=== PATIENT | female | born 1960 | race Caucasian/White ===

== ENCOUNTER 2016-06-28 17:57 | Inpatient (IN) | payer OTHER ==
--- NOTE | ~2016-06-28 | DS ---
Discharge Summary [facility] [address] [place]. [address] NAME: VENU ESTRELLA : 60 STATUS : DIS IN PAT#: [id number] AGE: 56 ADM/REG DATE : 06/28/16 MR#: [id number] REPORT SERV DATE: 07/02/16 DICTATED BY: LEIDY FERNÁNDEZ DATE: 07/01/16 REPORT STATUS : Draft TRANSCRIBED BY: MODL DATE: 07/01/16 ADMISSION DATE: 06/28/2016 DISCHARGE DATE: 07/01/2016 HISTORY OF PRESENT ILLNESS: The patient is a 56-year-old female with a history of seizure disorder, CVA, hypothyroidism, and morbid obesity, who presented to the emergency room with a complaint of bright red blood per rectum. For further details, please refer to H and P dictated by Dr. Mckeon on 06/28/2016. HOSPITAL COURSE: Upon admission to the hospital, the patient was admitted on the Hospitalist Service for further management. GI was subsequently consulted to assist in management. The patient underwent a colonoscopy by GI, which noted evidence of inflammation; however, studies were overall normal. Biopsies were taken. The patient was subsequently started on p.o. liquid diet and transitioned to regular diet, which she has tolerated. She remains hemodynamically stable with no evidence of further GI bleed. Also, given her presenting symptoms, workup included a stool study. Stool study was obtained, which came back negative. Given resolution of her presenting complaints, given her hemodynamic stability, and given completion of workup, the patient will be discharged to follow up with her primary care physician and GI as outpatient for biopsy results. Plan has been discussed with the patient, who voices understanding and is agreeable with this plan. DISCHARGE DIAGNOSES: 1. Colitis. 2. Lower gastrointestinal bleed. 3. History of cerebrovascular accident. 4. History of seizure disorder. 5. Hypothyroidism. 6. Morbid obesity. DISCHARGE EXAM: VITAL SIGNS: Blood pressure 130/62 with a pulse of 66, respirations 14, saturating 96% on room air, the patient is currently afebrile. GENERAL: The patient is lying in bed, in no acute distress. Speaking in full sentences. Appears stated age. Appears morbidly obese. HEENT: Normocephalic, atraumatic. Extraocular motors intact. Moist oral mucosa. Pupils round and reactive to light and accommodation. Extraocular motors intact. NECK: Full and symmetric. Trachea midline and symmetric. No thyromegaly noted. No masses palpated. CHEST: Clear. Nontender to palpation. No scars noted. CARDIOVASCULAR: Regular rate and rhythm. S1, S2. No murmurs, rubs, or gallops. LUNGS: Clear to auscultation bilaterally. ABDOMEN: Morbidly obese. Positive bowel sounds. Mild tenderness noted. EXTREMITIES: No cyanosis, clubbing, or edema. NEUROLOGIC: Alert and oriented x3. No focal deficits appreciated. DISCHARGE MEDICATIONS: Valium 10 mg p.o. q.6 hours, ranitidine 150 mg p.o. twice a day, [place] 10/25 mg one tab p.o. four times a day, Keppra 1500 mg p.o. twice a day, levothyroxine Discharge Summary [address] [address] NAME: VENU ESTRELLA : 60 STATUS : DIS IN PAT#: [id number] AGE: 56 ADM/REG DATE : 06/28/16 MR#: [id number] REPORT SERV DATE: 07/02/16 DICTATED BY: LEIDY FERNÁNDEZ DATE: 07/01/16 REPORT STATUS : Draft TRANSCRIBED BY: MAGGIE DATE: 07/01/16 25 mcg p.o. daily, Atarax 25 mg p.o. at bedtime, lisinopril 10 mg p.o. daily, hydrochlorothiazide 25 mg p.o. daily, albuterol two puff inhalations q.4 hours p.r.n., Zyrtec 10 mg p.o. daily p.r.n., and Stanback powder. IMAGIN. Brain CT without contrast, impression:. a. No acute CVA or other acute intracranial pathology. b. Small, well-defined 2-cm water-attenuation hypodensity at the inferior temporal lobe suggesting focal encephalomalacia from an old CVA, less likely peripheral arachnoid cyst. 2. CT abdomen and pelvis without contrast, impression:. a. Long segment colitis pattern involving descending colon to the level of the junction with the proximal sigmoid colon. No pericolonic abscess, most likely infectious or inflammatory colitis. b. Stable changes of cholecystectomy and hysterectomy. c. Nonspecific, stable, mild hepatomegaly. GI was consulted during this admission. PROCEDURES: Colonoscopy was performed, impression, non thrombosed external hemorrhoids found on perianal exam, patchy moderate inflammation was found from 40 to 60 cm proximal to the anus secondary to left-sided colitis, biopsied. Exam was otherwise normal on direct and retroflexion views. DISPOSITION: The patient will be discharged home to follow up with primary care physician at for biopsy results. ACTIVITY: As tolerated. DIET: Regular. Greater than 30 minutes was spent on medication reconciliation, discharging, dictating note, coordination of care, and chart review. MAY/MAGGIE Leidy Fernández MD / [id number] CC: Leidy Fernández MD
--- NOTE | ~2016-06-28 | EGD ---
EGD REPORT [facility] [address] [place] [address] NAME: VENU MENDIETA : 60 STATUS : ADM IN PAT#: [id number] AGE: 56 ADM/REG DATE : 06/28/16 MR#: [id number] REPORT SERV DATE: 06/30/16 DICTATED BY: JARVIS DE LA FUENTE DATE: 06/30/16 REPORT STATUS : Draft [facility]ANS[facility]IBED [facility]: [facility] DATE: 06/30/16 Endoscopy Center Patient Name: Venu Mendieta Date of : 1960 Attending MD: JARVIS DE LA FUENTE MD Procedure Date No Time: 06/30/2016 Procedure: Colonoscopy Indications: Abdominal pain in the left lower quadrant, Hematochezia, Abnormal CT of the GI tract Referring MD: NYA POPE Medicines: Monitored Anesthesia Care Complications: No immediate complications. Estimated blood loss: Minimal. Procedure: Pre-Anesthesia Assessment: - ASA Grade Assessment: III - A patient with severe systemic disease. After I obtained informed consent, the scope was passed under direct vision. Throughout the procedure, the patient's blood pressure, pulse, and oxygen saturations were monitored continuously. The [id number] was introduced through the anus and advanced to the cecum, identified by appendiceal orifice and ileocecal valve. The colonoscopy was performed without difficulty. The patient tolerated the procedure well. The quality of the bowel preparation was good. Findings: The perianal exam was abnormal. Findings include non-thrombosed external hemorrhoids. Patchy moderate inflammation characterized by congestion (edema), erythema and shallow ulcerations was found from 40 to 60 cm proximal to the anus. Biopsies were taken with a cold forceps for histology. Estimated blood loss was minimal. The exam was otherwise without abnormality on direct and retroflexion views. Impression: - Non-thrombosed external hemorrhoids found on perianal exam. - Patchy moderate inflammation was found from 40 to 60 cm proximal to the anus secondary to left-sided colitis. Biopsied. - The examination was otherwise normal on direct and retroflexion views. Recommendation: - Return patient to hospital [facility] for ongoing care. EGD REPORT [address] [place]. [address] NAME: VENU MENDIETA : 60 STATUS : ADM IN [facility]#: [id number] AGE: 56 ADM/REG DATE : 06/28/16 MR#: [id number] REPORT SERV DATE: 06/30/16 DICTATED BY: JARVIS DE LA FUENTE DATE: 06/30/16 REPORT STATUS : Draft TRANSCRIBED BY: [facility] [facility] DATE: 06/30/16 - Await pathology results. - Obtain basic stool studies (has not yet been performed) - Use broad spectrum antibiotics for 2 weeks. Procedure Code(s): --- Professional --- 11922, Colonoscopy, flexible, proximal to splenic flexure; with biopsy, single or multiple Diagnosis Code(s): --- Professional --- K64.4, Residual hemorrhoidal skin tags K51.50, Left sided colitis without complications R10.32, Left lower quadrant pain K92.1, Melena R93.3, Abnormal findings on diagnostic imaging of other parts of digestive tract CPT copyright 2013 [employer]. All rights reserved. The codes documented in this report are preliminary and upon certified medical records coder review may be revised to meet current compliance requirements. Jarvis De La Fuente MD JARVIS DE LA FUENTE MD 06/30/2016 9:06 AM This report has been signed electronically. Number of Addenda: 0 Note Initiated On: 06/30/2016 8:31 AM Scope Withdrawal Time 0 hours 9 minutes 9 seconds [id number] [id number]
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
--- NOTE | ~2016-06-28 | CN ---
Consultation Report [place] [id number] [facility] [place]. [address] NAME: VENU ESTRELLA : 60 STATUS : ADM IN PAT#: [id number] AGE: 56 ADM/REG DATE : 06/28/16 MR#: [id number] REPORT SERV DATE: 06/29/16 DICTATED BY: HARRY PAIZ DATE: 06/29/16 REPORT STATUS : Draft TRANSCRIBED BY: MODL DATE: 06/29/16 GI CONSULTATION DATE OF CONSULTATION: 06/29/2016 HISTORY OF PRESENT ILLNESS: The patient is a 56-year-old, white female, whom we are consulted for hematochezia. The patient gives a two-month history of bright red blood per rectum, which worsened along with left lower quadrant pain, which worsened over the last couple of days. In the emergency room, she was found to have a hemoglobin of 16.0, hematocrit 47.[address] scan showing thickening of the left side of her colon consistent with colitis. The patient had a colonoscopy back in [address] Chao, at which time, polyps were removed. She says she was bleeding at that time. PAST MEDICAL HISTORY: 1. Hypertension. 2. Hypothyroidism. 3. Gastroesophageal reflux disease. 4. Seizure disorder. 5. Status post hysterectomy, bladder tack, and cholecystectomy. MEDICATIONS: Reviewed. Of note, she does take chronic hydrocodone for chronic pain, as well as ranitidine for her reflux. ALLERGIES: NONE. SOCIAL HISTORY: The patient has history of tobacco use in the past. PHYSICAL EXAMINATION: GENERAL: The patient is an obese, white female, in no acute distress. LUNGS: Clear. CARDIOVASCULAR: Regular rate and rhythm. ABDOMINAL: Soft. There is ximm-ha-[id number] tenderness in the left lower quadrant. No peritoneal signs are appreciated. LABORATORY: Noted. ASSESSMENT: 1. Although the patient gives a history of two months of rectal bleeding, her change most recently seems to be due to most likely ischemic colitis. Other times, colitis will need to be considered, but seems less likely. With her chronic bleeding, anal canal disease is likely for this chronic issue. 2. History of colon polyps removed in 2014. Consultation Report [place] [id number] [facility] [place]. [address] NAME: VENU ESTRELLA : 60 STATUS : ADM IN PAT#: [id number] AGE: 56 ADM/REG DATE : 06/28/16 MR#: [id number] REPORT SERV DATE: 06/29/16 DICTATED BY: HARRY PAIZ DATE: 06/29/16 REPORT STATUS : Draft TRANSCRIBED BY: MAGGIE DATE: 06/29/16 3. Gastroesophageal reflux disease. 4. Other medical problems as above. RECOMMENDATIONS: 1. Continue to monitor the patient. 2. We will schedule the patient for colonoscopy in the morning. 3. Continue antibiotics in the interim. LS/MAGGIE Harry Paiz M.D. / [id number] CC: Saige Benedict MD
[2016-06-28 14:44] LABS: BASOPHILS 0.2 %; BASOPHILS ABSOLUTE 0.05 10/3/uL (0.0-0.16); EOSINOPHILS 0.2 %; EOSINOPHILS ABSOLUTE 0.05 10/3/uL (0.0-0.53); HEMATOCRIT 47.3 % (36.0-48.0); IMMATURE GRANULOCYTES 0.8 %; IMMATURE GRANULOCYTES ABSOLUTE 0.16 10/3/uL (0.0-0.11); LYMPHOCYTES 20.1 %; LYMPHOCYTES ABSOLUTE 4.08 10/3/uL (0.67-4.30); MEAN CORPUS HGB CONC 33.8 g/dL (32.0-36.0); MEAN CORPUSCULAR HEMOGLOB 29.5 pg (26.0-34.0); MEAN CORPUSCULAR VOLUME 87.3 fL (80-100); MONOCYTES 5.7 %; MONOCYTES ABSOLUTE 1.15 10/3/uL (0.21-1.20); NEUTROPHILS ABSOLUTE 14.84 10/3/uL (2.02-8.40); PLATELET COUNT 328 10/3/uL (150-400); RBC DISTRIBUTION WIDTH 12.9 % (12.0-16.0); RED CELL COUNT 5.42 10/6/uL (4.0-5.6)
[2016-06-28 14:45] LABS: ER CBC TAT 0 Hrs 08 Mins; MANUAL DIFF NO %; WHITE BLOOD CELLS 20.3 10/3/uL (4.5-10.5)
[2016-06-28 14:51] LABS: ASCORBIC ACID (UR NOT ORDER) NEG (NEG); BILIRUBIN, URINE NEGATIVE (NEG); ER URINALYSIS TAT 0 Hrs 14 Mins; KETONE, URINE NEGATIVE (NEG); LEUKOCYTE ESTERASE(NOT OR NEG (NEG); NITRITE (URINE) NEG (NEG); WBC (NOT ORDERED) (RFLEX) 3 (0-5)
[2016-06-28 15:03] LABS: A/G RATIO 0.8 (0.7-1.9); ALBUMIN 3.6 G/DL (3.5-5.0); ALKALINE PHOSPHATASE 99 U/L (45-117); BUN (BLOOD UREA NITROGEN) 23 MG/DL (6-23); CALCIUM, SERUM 9.1 MG/DL (8.5-10.4); CHLORIDE, SERUM 99 MMOL/L (96-112); CO2 (CARBON DIOXIDE) 28 MMOL/L (24-34); CREATININE 0.84 MG/DL (0.55-1.02); GFR AFRICAN AMERICAN 90 ML/MIN (>=60); GFR NON AFRICAN AMERICAN 78 ML/MIN (>=60); GLOBULIN 4.5 G/DL (2.5-4.1); GLUCOSE, SERUM 95 MG/DL (60-99); POTASSIUM, SERUM 4.1 MMOL/L (3.5-5.3); SGOT(AST) 32 U/L (5-40); SGPT(ALT) 31 U/L (5-65); SODIUM, SERUM 139 MMOL/L (135-148); TOTAL BILIRUBIN 0.9 MG/DL (0-1.2); TOTAL PROTEIN 8.1 G/DL (6.0-8.5)
[~2016-06-28 17:57] MED LIST: DELESTROGEN40 MG/ML IM; GLUCPH PO; HCTZ25B PO; ICY HOT16 % TOP; KEPPRA1000 MG PO; KEPPRA500 PO; METHOC500B PO; NORCO1 TAB PO; PRIN10 PO; PROVHFA INH; REQUIP5 PO; RISP0.5 PO; SYN.025B PO; XANAX1 MG PO; ZANTAC 150 PO; ZOCOR20 PO; ZOL100 PO
[2016-06-28] MEDS ORDERED: LEVOTHYROXIN25 MCG PO (18:34)
[2016-06-28] MEDS ORDERED: KEPPRA500 PO (18:34)
[2016-06-28] MEDS ORDERED: ZANTAC150 MG PO (18:34)
[2016-06-28] MEDS ORDERED: PRIN10 PO (18:34)
[2016-06-28] MEDS ORDERED: HYDROCHLOROT25 MG PO (18:35)
[2016-06-28] MEDS ORDERED: NORCO1 TAB PO (18:35)
[2016-06-28] MEDS ORDERED: PROVHFA INH (18:35)
[2016-06-28] MEDS ORDERED: VALIUM10 MG PO (18:36)
[2016-06-28] MEDS ORDERED: AT25 PO (18:36)
[2016-06-28] MEDS ORDERED: ZYRTEC ALLGY10 MG PO (18:36)
[2016-06-28] MEDS ORDERED: ASPIRIN PO (18:37)
[2016-06-28] MEDS ORDERED: CAFFEINE PO (18:37)
[2016-06-28 21:25] LABS: PROCALCITONIN <0.05 ng/mL (<0.5)
[2016-06-28 23:39] LABS: HEMATOCRIT 43.6 % (36.0-48.0); HEMOGLOBIN 14.6 g/dL (12.0-16.0)
[2016-06-29 06:17] LABS: BASOPHILS 0.1 %; BASOPHILS ABSOLUTE 0.02 10/3/uL (0.0-0.16); EOSINOPHILS 2.6 %; EOSINOPHILS ABSOLUTE 0.35 10/3/uL (0.0-0.53); HEMATOCRIT 40.4 % (36.0-48.0); HEMOGLOBIN 13.4 g/dL (12.0-16.0); IMMATURE GRANULOCYTES 0.5 %; IMMATURE GRANULOCYTES ABSOLUTE 0.07 10/3/uL (0.0-0.11); LYMPHOCYTES 32.3 %; LYMPHOCYTES ABSOLUTE 4.42 10/3/uL (0.67-4.30); MEAN CORPUS HGB CONC 33.2 g/dL (32.0-36.0); MEAN CORPUSCULAR HEMOGLOB 29.1 pg (26.0-34.0); MEAN CORPUSCULAR VOLUME 87.8 fL (80-100); MEAN PLATELET VOLUME 9.9 fL (9.2-13.0); MONOCYTES ABSOLUTE 0.82 10/3/uL (0.21-1.20); NEUTROPHILS 58.5 %; NEUTROPHILS ABSOLUTE 8.01 10/3/uL (2.02-8.40); PLATELET COUNT 303 10/3/uL (150-400); RBC DISTRIBUTION WIDTH 13.1 % (12.0-16.0); WHITE BLOOD CELLS 13.7 10/3/uL (4.5-10.5)
[2016-06-29 06:21] LABS: MANUAL DIFF NO %
[2016-06-29 06:28] LABS: CALCIUM, SERUM 9.2 MG/DL (8.5-10.4); CHLORIDE, SERUM 98 MMOL/L (96-112); CO2 (CARBON DIOXIDE) 26 MMOL/L (24-34); CREATININE 1.08 MG/DL (0.55-1.02); GFR AFRICAN AMERICAN 66 ML/MIN (>=60); GFR NON AFRICAN AMERICAN 57 ML/MIN (>=60); GLUCOSE, SERUM 94 MG/DL (60-99); POTASSIUM, SERUM 3.6 MMOL/L (3.5-5.3); SODIUM, SERUM 136 MMOL/L (135-148)
[2016-06-29 06:29] LABS: BUN (BLOOD UREA NITROGEN) 27 MG/DL (6-23)
[2016-06-29 15:19] LABS: HEMATOCRIT 40.4 % (36.0-48.0); HEMOGLOBIN 13.5 g/dL (12.0-16.0)
[2016-06-29 21:59] LABS: HEMATOCRIT 40.7 % (36.0-48.0); HEMOGLOBIN 13.6 g/dL (12.0-16.0)
[2016-06-30 06:18] LABS: BASOPHILS 0.2 %; BASOPHILS ABSOLUTE 0.03 10/3/uL (0.0-0.16); EOSINOPHILS 2.4 %; EOSINOPHILS ABSOLUTE 0.31 10/3/uL (0.0-0.53); HEMATOCRIT 41.6 % (36.0-48.0); HEMOGLOBIN 13.7 g/dL (12.0-16.0); IMMATURE GRANULOCYTES 0.4 %; IMMATURE GRANULOCYTES ABSOLUTE 0.05 10/3/uL (0.0-0.11); LYMPHOCYTES 31.1 %; LYMPHOCYTES ABSOLUTE 4.02 10/3/uL (0.67-4.30); MEAN CORPUS HGB CONC 32.9 g/dL (32.0-36.0); MEAN CORPUSCULAR HEMOGLOB 29.1 pg (26.0-34.0); MEAN CORPUSCULAR VOLUME 88.3 fL (80-100); MEAN PLATELET VOLUME 9.8 fL (9.2-13.0); MONOCYTES 5.2 %; MONOCYTES ABSOLUTE 0.67 10/3/uL (0.21-1.20); NEUTROPHILS 60.7 %; NEUTROPHILS ABSOLUTE 7.86 10/3/uL (2.02-8.40); PLATELET COUNT 279 10/3/uL (150-400); RED CELL COUNT 4.71 10/6/uL (4.0-5.6); WHITE BLOOD CELLS 12.9 10/3/uL (4.5-10.5)
[2016-06-30 06:23] LABS: ALBUMIN 2.9 G/DL (3.5-5.0); CALCIUM, SERUM 8.7 MG/DL (8.5-10.4); CHLORIDE, SERUM 104 MMOL/L (96-112); CO2 (CARBON DIOXIDE) 26 MMOL/L (24-34); CREATININE 0.67 MG/DL (0.55-1.02); GFR AFRICAN AMERICAN 114 ML/MIN (>=60); GFR NON AFRICAN AMERICAN 98 ML/MIN (>=60); GLUCOSE, SERUM 93 MG/DL (60-99); PHOSPHORUS, SERUM 2.6 MG/DL (2.5-4.5); POTASSIUM, SERUM 3.8 MMOL/L (3.5-5.3); SODIUM, SERUM 139 MMOL/L (135-148)
[2016-06-30 06:28] LABS: MANUAL DIFF NO %
[2016-06-30 06:31] LABS: BUN (BLOOD UREA NITROGEN) 11 MG/DL (6-23)
[2016-06-30 15:14] LABS: HEMATOCRIT 37.5 % (36.0-48.0); HEMOGLOBIN 12.2 g/dL (12.0-16.0)
[2016-06-30 22:59] LABS: HEMATOCRIT 37.3 % (36.0-48.0); HEMOGLOBIN 12.3 g/dL (12.0-16.0)
[2016-07-01 06:32] LABS: BASOPHILS 0.4 %; BASOPHILS ABSOLUTE 0.03 10/3/uL (0.0-0.16); EOSINOPHILS 7.9 %; HEMATOCRIT 36.6 % (36.0-48.0); HEMOGLOBIN 12.1 g/dL (12.0-16.0); IMMATURE GRANULOCYTES 0.7 %; IMMATURE GRANULOCYTES ABSOLUTE 0.05 10/3/uL (0.0-0.11); LYMPHOCYTES 45.4 %; LYMPHOCYTES ABSOLUTE 3.47 10/3/uL (0.67-4.30); MEAN CORPUS HGB CONC 33.1 g/dL (32.0-36.0); MEAN CORPUSCULAR HEMOGLOB 29.7 pg (26.0-34.0); MEAN CORPUSCULAR VOLUME 89.7 fL (80-100); MEAN PLATELET VOLUME 9.7 fL (9.2-13.0); MONOCYTES 6.5 %; NEUTROPHILS 39.1 %; NEUTROPHILS ABSOLUTE 2.99 10/3/uL (2.02-8.40); PLATELET COUNT 237 10/3/uL (150-400); RBC DISTRIBUTION WIDTH 13.1 % (12.0-16.0); RED CELL COUNT 4.08 10/6/uL (4.0-5.6)
[2016-07-01 06:33] LABS: MANUAL DIFF NO %; WHITE BLOOD CELLS 7.6 10/3/uL (4.5-10.5)
[2016-07-01 06:47] LABS: ALBUMIN 2.5 G/DL (3.5-5.0); BUN (BLOOD UREA NITROGEN) 10 MG/DL (6-23); CALCIUM, SERUM 8.2 MG/DL (8.5-10.4); CHLORIDE, SERUM 105 MMOL/L (96-112); CO2 (CARBON DIOXIDE) 30 MMOL/L (24-34); CREATININE 0.78 MG/DL (0.55-1.02); GFR AFRICAN AMERICAN 98 ML/MIN (>=60); GFR NON AFRICAN AMERICAN 85 ML/MIN (>=60); PHOSPHORUS, SERUM 2.3 MG/DL (2.5-4.5); POTASSIUM, SERUM 3.7 MMOL/L (3.5-5.3); SODIUM, SERUM 142 MMOL/L (135-148)
[2016-07-01 06:48] LABS: GLUCOSE, SERUM 126 MG/DL (60-99)
== END 2016-07-01 16:56 | disposition home health service (06) | DRG 394 ==
LOC: ER 17:57 → 2SO 20:02
PROVIDERS: Hospitalist; Internal Medicine Gastroenterology
PROC: 0D9Q8ZX Drainage of Anus, Via Natural or Artificial Opening Endoscopic, Diagnostic (ICD-10-PCS; principal; 2016-06-30 08:36)
DX: K55.9 Vascular disorder of intestine, unspecified (principal); Z68.41 Body mass index [BMI] 40.0-44.9, adult; E66.01 Morbid (severe) obesity due to excess calories; G40.909 Epilepsy, unspecified, not intractable, without status epilepticus; F41.9 Anxiety disorder, unspecified; E03.9 Hypothyroidism, unspecified; E11.9 Type 2 diabetes mellitus without complications; K21.9 Gastro-esophageal reflux disease without esophagitis; K64.4 Residual hemorrhoidal skin tags; R10.32 Left lower quadrant pain; R93.3 Abnormal findings on diagnostic imaging of other parts of digestive tract; Z86.73 Personal history of transient ischemic attack (TIA), and cerebral infarction without residual deficits; Z98.890 Other specified postprocedural states
CPT/HCPCS: 70450; 71010; 74176; 80048; 80053; 80069; 81001; 83036; 83690; 83735; 84145; 84443; 85014; 85018; 85025; 87040; 87045; 87046; 87046-59; 87328; 87329; 87493; 87493-59; 87899; 87899-59; 88305; 89055; 90686; 96374; 96375; 99285; A9270-GY; G0008; J1170; J1956; J1980; J2405

== ENCOUNTER 2017-01-14 10:14 | Emergency (ER) | payer OTHER ==
[~2017-01-14 10:14] MED LIST changes: +ASPIRIN PO; +AT25 PO; +CAFFEINE PO; +HYDROCHLOROT25 MG PO; +LEVOTHYROXIN25 MCG PO; +VALIUM10 MG PO; +ZANTAC150 MG PO; +ZYRTEC ALLGY10 MG PO
[2017-01-14 10:53] LABS: BASOPHILS 0.3 %; BASOPHILS ABSOLUTE 0.03 10/3/uL (0.0-0.16); EOSINOPHILS 2.6 %; EOSINOPHILS ABSOLUTE 0.24 10/3/uL (0.0-0.53); ER CBC TAT 0 Hrs 05 Mins; HEMATOCRIT 43.8 % (36.0-48.0); HEMOGLOBIN 14.4 g/dL (12.0-16.0); IMMATURE GRANULOCYTES 0.1 %; IMMATURE GRANULOCYTES ABSOLUTE 0.01 10/3/uL (0.0-0.11); LYMPHOCYTES 29.6 %; LYMPHOCYTES ABSOLUTE 2.71 10/3/uL (0.67-4.30); MANUAL DIFF NO %; MEAN CORPUS HGB CONC 32.9 g/dL (32.0-36.0); MEAN CORPUSCULAR HEMOGLOB 28.4 pg (26.0-34.0); MEAN CORPUSCULAR VOLUME 86.4 fL (80-100); MEAN PLATELET VOLUME 9.8 fL (9.2-13.0); MONOCYTES 4.3 %; MONOCYTES ABSOLUTE 0.39 10/3/uL (0.21-1.20); NEUTROPHILS 63.1 %; NEUTROPHILS ABSOLUTE 5.79 10/3/uL (2.02-8.40); PLATELET COUNT 301 10/3/uL (150-400); RBC DISTRIBUTION WIDTH 14.1 % (12.0-16.0); RED CELL COUNT 5.07 10/6/uL (4.0-5.6); WHITE BLOOD CELLS 9.2 10/3/uL (4.5-10.5)
[2017-01-14 10:59] LABS: PARTIAL THROMBO TIME 30.4 SEC (22.5-37.2); PROTIME (NOT ORD) 13.2 SEC (12.0-14.5)
[2017-01-14 11:11] LABS: CALCIUM, SERUM 9.4 MG/DL (8.5-10.4); CHEST PAIN PROFILE TAT 0 Hrs 23 Mins; CHLORIDE, SERUM 102 MMOL/L (96-112); CO2 (CARBON DIOXIDE) 28 MMOL/L (24-34); CREATININE 0.79 MG/DL (0.55-1.02); GFR AFRICAN AMERICAN 97 ML/MIN (>=60); GFR NON AFRICAN AMERICAN 84 ML/MIN (>=60); GLUCOSE, SERUM 136 MG/DL (60-99); POTASSIUM, SERUM 3.5 MMOL/L (3.5-5.3); SODIUM, SERUM 139 MMOL/L (135-148); TROPONIN I <0.02 NG/ML (<0.05)
[2017-01-14 11:12] LABS: BUN (BLOOD UREA NITROGEN) 12 MG/DL (6-23)
[2017-01-14 11:43] LABS: ALBUMIN 3.2 G/DL (3.5-5.0); DIRECT BILIRUBIN < 0.1 MG/DL (0.0-0.4); INDIRECT BILIRUBIN(NOT ORDER) 0.3 MG/DL (0.1-0.9); SGOT(AST) 42 U/L (5-40); SGPT(ALT) 27 U/L (5-65); TOTAL BILIRUBIN 0.4 MG/DL (0-1.2); TOTAL PROTEIN 8.1 G/DL (6.0-8.5)
[2017-01-14 11:43] LABS: ASCORBIC ACID (UR NOT ORDER) NEG (NEG); BILIRUBIN, URINE NEGATIVE (NEG); ER URINALYSIS TAT 0 Hrs 15 Mins; KETONE, URINE NEGATIVE (NEG); LEUKOCYTE ESTERASE(NOT OR TRACE (NEG); NITRITE (URINE) NEG (NEG); WBC (NOT ORDERED) (RFLEX) 28 (0-5)
[2017-01-14 11:44] LABS: ALKALINE PHOSPHATASE 136 U/L (45-117)
== END 2017-01-14 13:16 | disposition home or self-care (01) ==
LOC: ER 10:14
PROVIDERS: Emergency Medicine; Nurse Practitioner
DX: N39.0 Urinary tract infection, site not specified (principal); R07.9 Chest pain, unspecified; I10 Essential (primary) hypertension; Z86.73 Personal history of transient ischemic attack (TIA), and cerebral infarction without residual deficits; Z87.442 Personal history of urinary calculi; Z90.710 Acquired absence of both cervix and uterus; Z90.49 Acquired absence of other specified parts of digestive tract; Z88.1 Allergy status to other antibiotic agents; Z79.899 Other long term (current) drug therapy
CPT/HCPCS: 71020; 74176; 80048; 80076; 81001; 83690; 83735; 84484; 85025; 85610; 85730; 87077; 87086; 87186; 93005; 96374; 99285; A9270-GY; J2405